=== PATIENT | female | born 1995 | race Caucasian/White ===

== ENCOUNTER 2021-09-12 14:00 | Emergency (ER) | payer OTHER ==
[~2021-09-12] VITALS: Ht 160 cm; Wt 61.2 kg
[2021-09-12 14:32] LABS: BASOPHILS % (AUTO) 0 % (0-10); EOSINOPHILS # (AUTO) 0.2 10^3/uL (0.0-0.3); EOSINOPHILS % (AUTO) 4 % (0-10); HEMATOCRIT 42 % (35-52); HEMOGLOBIN 13.5 g/dL (11.5-16.0); LYMPHOCYTES # (AUTO) 2.7 10^3/uL (1.0-4.0); LYMPHOCYTES % (AUTO) 39 % (12-44); MEAN CORPUSCULAR HEMOGLOBIN 29 pg (25-34); MEAN CORPUSCULAR HGB CONC 33 g/dL (32-36); MEAN CORPUSCULAR VOLUME 90 fL (80-99); MEAN PLATELET VOLUME 10.9 fL (9.0-12.2); MONOCYTES # (AUTO) 0.7 10^3/uL (0.0-1.0); MONOCYTES % (AUTO) 10 % (0-12); NEUTROPHILS # (AUTO) 3.3 10^3/uL (1.8-7.8); NEUTROPHILS % (AUTO) 47 % (42-75); PLATELET COUNT 291 10^3/uL (130-400); WHITE BLOOD COUNT 6.9 10^3/uL (4.3-11.0)
[2021-09-12 14:40] LABS: ALBUMIN 4.1 GM/DL (3.2-4.5); POTASSIUM 3.6 MMOL/L (3.6-5.0)
[2021-09-12 14:41] LABS: CALCIUM 9.4 MG/DL (8.5-10.1)
[2021-09-12 14:44] LABS: BILIRUBIN,TOTAL 0.5 MG/DL (0.1-1.0)
[2021-09-12 14:46] LABS: CREATININE SERUM 0.75 MG/DL (0.60-1.30)
[2021-09-12 14:49] LABS: MAGNESIUM 1.8 MG/DL (1.6-2.4)
--- NOTE | 2021-09-12 14:55 | ED General ---
General Chief Complaint: Facial Problems Stated Complaint: LIP DROOPING Nursing Triage Note: PT AMB TO [facility] 2 FROM [facility] FOR RIGHT LIP DROOP THAT BEGAN AT APPROX 1245 TODAY. PT REPORTS DROOP IS INTERMITTENT AND IS NOT OCCURRING DURING TRIAGE. PT DENIES SYMPTOMS TO REST OF FACE/BODY. PT A&OX4, DENIES PAIN. Source of Information: Patient, Family Exam Limitations: No Limitations History of Present Illness Date Seen by Provider: Sep 12, 2021 Time Seen by Provider: 14:20 Initial Comments Here with report of lower lip twitching on the right side and drooping. This is intermittent and has improved since about 1245 today. Denies vision or balance problems, speech problems, swallowing difficulty, difficulty with movement or mentation or other concerns currently. Denies any recent illness. She was seen at the clinic and was sent here for further evaluation. Did have Covid in early July but otherwise has had no recent illnesses. She is also vaccinated with Materna with second dose 6 months ago. Timing/Duration: 1-3 Hours Severity: Mild Modifying Factors: improves with Rest Associated Systoms: No Chest Pain, No Cough, No Fever/Chills, No Headaches, No Malaise, No Nausea/Vomiting, No Rash, No Seizure, No Shortness of Air, No Syncope, No Weakness Allergies and Home Medications Allergies Coded Allergies: No Known Drug Allergies (Unverified , 09/12/21) Patient Home Medication List Home Medication List Reviewed: Yes Review of Systems Review of Systems Constitutional: No chills, No fever EENTM: see HPI; No nose congestion, No throat pain Respiratory: No cough, No short of breath Cardiovascular: no symptoms reported Gastrointestinal: No nausea, No vomiting Genitourinary: no symptoms reported Musculoskeletal: No back pain, No joint pain, No muscle pain, No muscle weakness, No neck pain Skin: No change in color, No lesions Psychiatric/Neurological: See HPI; Denies Headache; Paresthesia (Lower lip on the right intermittent) Hematologic/Lymphatic: No Symptoms Reported All Other Systems Reviewed Negative Unless Noted: Yes Past Wbiuqow-Beiblz-Fvsomz Hx Patient Social History Tobacco Use?: No Use of E-Cig and/or Vaping dev: No Substance use?: No Alcohol Use?: No Immunizations Up To Date Influenza Vaccine Up-to-Date: No; Not Current First/Initial COVID19 Vaccinat: 2020 Second COVID19 Vaccination Dutch: 2020 Third COVID19 Vaccination Date: N/A COVID19 Vaccine Clinical Dietician: KEELY Past Medical History Surgeries: No Respiratory: No Cardiac: No Neurological: No Last Menstrual Period: Sep 07, 2021 Family Medical History Reviewed Nursing Family Hx No Pertinent Family Hx Physical Exam Vital Signs Vital Signs - First Documented 09/12/21 14:05 Temp 37.1 Pulse 74 Resp 20 B/P (MAP) 109/82 (91) Pulse Ox 100 O2 Delivery Room Air Capillary Refill : Less Than 3 Seconds Height, Weight, BMI Height: '" Weight: lbs. oz. kg; 23.00 BMI Method: General Appearance: No Apparent Distress, WD/WN HEENT: PERRL/EOMI, TMs Normal, Pharynx Normal Neck: Non Tender, Supple Respiratory: Lungs Clear, Normal Breath Sounds Cardiovascular: Regular Rate, Rhythm, No Murmur Gastrointestinal: Non Tender, Soft Back: Normal Inspection, No CVA Tenderness, No Vertebral Tenderness Extremity: Normal Inspection, Normal Range of Motion, Non Tender, No Calf Tenderness Neurologic/Psychiatric: Alert, Oriented x3, No Motor/Sensory Deficits, Normal Mood/Affect, bridge leverman II-XII Norm as Tested Skin: Normal Color, Warm/Dry Progress/Results/Core Measures Suspected Sepsis SIRS Temperature: Pulse: 74 Respiratory Rate: 20 Laboratory Tests 09/12/21 14:25: White Blood Count 6.9 Blood Pressure 109 /82 Mean: 91 Laboratory Tests 09/12/21 14:25: Creatinine 0.75, Platelet Count 291, Total Bilirubin 0.5 Results/Orders Lab Results Laboratory Tests Test 09/12/21 14:25 Range/Units White Blood Count 6.9 4.3-11.0 10^3/uL Red Blood Count 4.60 3.80-5.11 10^6/uL Hemoglobin 13.5 11.5-16.0 g/dL Hematocrit 42 35-52 % Mean Corpuscular Volume 90 80-99 fL Mean Corpuscular Hemoglobin 29 25-34 pg Mean Corpuscular Hemoglobin Concent 33 32-36 g/dL Red Cell Distribution Width 11.9 10.0-14.5 % Platelet Count 291 130-400 10^3/uL Mean Platelet Volume 10.9 9.0-12.2 fL Immature Granulocyte % (Auto) 0 % Neutrophils (%) (Auto) 47 42-75 % Lymphocytes (%) (Auto) 39 12-44 % Monocytes (%) (Auto) 10 0-12 % Eosinophils (%) (Auto) 4 0-10 % Basophils (%) (Auto) 0 0-10 % Neutrophils # (Auto) 3.3 1.8-7.8 10^3/uL Lymphocytes # (Auto) 2.7 1.0-4.0 10^3/uL Monocytes # (Auto) 0.7 0.0-1.0 10^3/uL Eosinophils # (Auto) 0.2 0.0-0.3 10^3/uL Basophils # (Auto) 0.0 0.0-0.1 10^3/uL Immature Granulocyte # (Auto) 0.0 0.0-0.1 10^3/uL D-Dimer <= 0.27 0.00-0.49 UG/ML Sodium Level 138 135-145 MMOL/L Potassium Level 3.6 3.6-5.0 MMOL/L Chloride Level 106 98-107 MMOL/L Carbon Dioxide Level 24 21-32 MMOL/L Anion Gap 8 5-14 MMOL/L Blood Urea Nitrogen 13 7-18 MG/DL Creatinine 0.75 0.60-1.30 MG/DL Estimat Glomerular Filtration Rate 112 BUN/Creatinine Ratio 17 Glucose Level 93 70-105 MG/DL Calcium Level 9.4 8.5-10.1 MG/DL Corrected Calcium 9.3 8.5-10.1 MG/DL Magnesium Level 1.8 1.6-2.4 MG/DL Total Bilirubin 0.5 0.1-1.0 MG/DL Aspartate Amino Transf (AST/SGOT) 16 5-34 U/L Alanine Aminotransferase (ALT/SGPT) 14 0-55 U/L Alkaline Phosphatase 38 L 40-136 U/L Total Protein 7.0 6.4-8.2 GM/DL Albumin 4.1 3.2-4.5 GM/DL TSH [place] Testing 1.80 0.35-4.94 UIU/ML Serum Test, Qualitative NEGATIVE NEGATIVE My Orders Orders - FADY GOTTI MD Cbc With Automated Diff (09/12/21 14:25) Comprehensive Metabolic Panel (09/12/21 14:25) Fibrin Degradation Products (09/12/21 14:25) Hcg,Qualitative Serum (09/12/21 14:25) Magnesium (09/12/21 14:25) Thyroid Analyzer (09/12/21 14:25) Ed Iv/Invasive Line Start (09/12/21 14:25) Vital Signs/I&O 09/12/21 14:05 Temp 37.1 Pulse 74 Resp 20 B/P (MAP) 109/82 (91) Pulse Ox 100 O2 Delivery Room Air Capillary Refill : Less Than 3 Seconds Blood Pressure Mean: 91 Progress Note : Progress Note Seen and evaluated. Rather benign physical exam. We will go ahead and check basic CBC and CMP to evaluate for electrolyte or other metabolic disturbance. If we have added thyroid study. D-dimer added due to history of Covid and to assist in ruling out thrombus. No indication for radiological procedure currently with current findings due to risk benefit. This was discussed with patient and family who agree. Monitor patient. 1535: No acute finding on labs. D-dimer negative and thyroid study normal. Patient is not having any persisting symptoms currently. She does note an occasional twitch of the lower lip but nothing that sustained. She feels much more comfortable currently. I did thoroughly go over return precautions for neurological problems. If symptoms persist, MRI might be a better modality and she can discuss this with her doctor. We also discussed early Hernandez's palsy as a possibility. These will all remain in consideration. Discharged home with return precautions. Patient and family verbalized understanding of instructions and agreement with plan. Departure Impression Primary Impression: Facial twitching Disposition: 01 HOME, SELF-CARE Condition: Improved Departure-Patient Inst. Decision time for Depature: 15:38 Referrals: ANA LILIA PENNY DO (PCP/Family) Primary Care Physician Patient Instructions: Hernandez's Palsy (DC), Stroke (DC) Add. Discharge Instructions: All discharge instructions reviewed with patient and/or family. Voiced understanding. I have given you information for your Hernandez's palsy and stroke not because I believe you have those but so that you have information on what to look for for concerns of those. Continue home medications as previously prescribed. Drink plenty of fluids and eat a normal diet. Follow-up with your doctor early next week for recheck and further evaluation and to discuss current symptoms. Return for facial weakness, facial droop, difficulty with speech or swallowing, difficulty with moving one or more extremities, numbness, weakness, change in mental status or other concerns as needed. Copy Copies To 1: ANA LILIA PENNY TIMOTHY D MD Sep 12, 2021 14:55
[2021-09-12 15:09] LABS: TSH (THYROID ANALYZER) 1.8 UIU/ML (0.35-4.94)
[2021-09-12 15:49] VITALS: BP 104/67
== END 2021-09-12 15:49 | disposition home or self-care (01) ==
LOC: ER 14:02
DX: R25.3 Fasciculation (principal); Z86.16 Personal history of COVID-19; Z32.02 Encounter for pregnancy test, result negative
CPT/HCPCS: 36415; 80053; 83735; 84443; 84703; 85025; 85379